=== PATIENT | male | born 1945 | race Caucasian/White ===

== ENCOUNTER 2019-03-13 16:27 | Emergency (ER) | payer MEDICARE, OTHER ==
[2019-03-13 16:41] VITALS: BP 164/92; PULSE 75; O2SAT 98
--- NOTE | 2019-03-13 16:41 | ERPHSYRPT ---
- History of Present Illness Time Seen by Provider: 03/13/19 16:33 Source: patient Exam Limitations: no limitations Patient Subjective Stated Complaint: this occurred just prior to arrival. Pain in left knee, this occurred when stepping off a curb there was a pop and immediate pain. He cannot bear weight on the left lower extremity. History of knee pain for some time but this is different than his past problems. Method of Injury: twisted Occurred: just prior to arrival Quality: sharpness Severity of Pain-Max: moderate Severity of Pain-Current: moderate Lower Extremities Pain: knee: left Modifying Factors: Improves With: nothing Associated Symptoms: unable to bear weight, snapping sensation, popping sensation - Review of Systems Constitutional: No Fever, No Chills Eyes: No Symptoms Ears, Nose, & Throat: No Symptoms Respiratory: No Cough, No Dyspnea Cardiac: No Chest Pain, No Edema, No Syncope Abdominal/Gastrointestinal: No Abdominal Pain, No Nausea, No Vomiting, No Diarrhea Genitourinary Symptoms: No Dysuria Musculoskeletal: Joint Pain, No Back Pain, No Neck Pain Skin: No Rash Neurological: No Dizziness, No Focal Weakness, No Sensory Changes Psychological: No Symptoms Endocrine: No Symptoms All Other Systems: Reviewed and Negative - Nursing Vital Signs Nursing Vital Signs: Initial Vital Signs Temperature 97.7 F 03/13/19 16:32 Pulse Rate 75 03/13/19 16:32 Respiratory Rate 18 03/13/19 16:32 Blood Pressure 164/92 03/13/19 16:32 O2 Sat by Pulse Oximetry 98 03/13/19 16:32 Pain Scale Pain Intensity 8 - Physical Exam General Appearance: alert Eyes, Ears, Nose, Throat Exam: moist mucous membranes Neck Exam: non-tender, supple Cardiovascular/Respiratory Exam: chest non-tender, normal breath sounds, regular rate/rhythm, no respiratory distress Gastrointestinal/Abdominal Exam: non-tender, guarding Back Exam: normal inspection, No vertebral tenderness Knees Exam: left knee: bone tenderness, joint effusion (none appreciated), pain , swelling DTR - Lower Extremities Exam: knee (R): 2+, knee (L): 2+ Neuro/Tendon Exam: normal sensation, normal motor functions, No tendon function deficit Mental Status Exam: alert, oriented x 3, cooperative Skin Exam: normal color, warm, dry - Course Nursing assessment & vital signs reviewed: Yes - Radiology Exams left knee X-ray Interpretation: Interpreted by me, Negative Ordered Tests: Active Orders 24 hr Category Date Time Status KNEE (3 VIEWS) Stat Exams 03/13/19 Ordered - Progress Discussed with DrPalmira: Other (ortho clinic at 8 AM) - Departure Departure Disposition: Home Clinical Impression: Internal derangement of knee Condition: Stable Critical Care Time: No Additional Instructions: ortho clinic at 8 AM tomorrow Plan of Treatment: immobilization, ccrutches Prescriptions: Hydrocodone/APAP 5-325 Tab^^^ [[place] 5-325 Tablet^^^] 1 tab PO Q6HPRN PRN #10 tablet MDD 6 PRN Reason: Pain
--- NOTE | 2019-03-13 17:02 | XRAY ---
Indication: Posterior knee pain. Comparison: None 3 views of the right knee demonstrates minimal medial joint space narrowing/spurring, tiny patella spurring, small tibial tubercle spurring, small fabella, and minimal vascular calcifications. No other bony, articular, or soft tissue abnormalities.
== END 2019-03-13 17:30 | disposition home or self-care (01) ==
LOC: ED 16:27
DX: M23.92 Unspecified internal derangement of left knee (principal); M25.562 Pain in left knee; X50.1XXA Overexertion from prolonged static or awkward postures, initial encounter; Y92.89 Other specified places as the place of occurrence of the external cause
CPT/HCPCS: 73562; 99284; L1830

== ENCOUNTER 2021-11-02 18:49 | Emergency (ER) | payer MEDICARE, OTHER ==
[2021-11-02 19:55] LABS: Basophil (Absolute #) 0.01 x10^3/uL (0-0.4); Eosinophil % 6.9 % (0.00-5.0); Eosinophil (Absolute #) 0.69 x10^3/uL (0-0.5); Hematocrit 36.3 % (42-50); Hemoglobin 11.8 g/dL (12.5-18.0); Lymphocyte (Absolute #) 2.06 x10^3/uL (1.0-4.6); Lymphocytes % 20.7 % (24.0-44.0); Mean Corpuscular Hemoglobin 26.3 pg (26-32); Mean Corpuscular Hgb Concent. 32.5 g/dL (32-36); Mean Platelet Volume 10.7 fL (7.5-11.0); Monocyte (Absolute #) 1.44 x10^3/uL (0.0-1.3); Monocytes % 14.5 % (0.0-12.0); Neutrophil % 57.4 % (36.0-66.0); Platelet Count 237 x10^3/uL (150-450); Red Blood Count 4.48 x10^6/uL (4.1-5.6); Red Cell Distribution Width 14.6 % (11.5-14.0); White Blood Count 9.9 x10^3/uL (4.0-10.5)
--- NOTE | 2021-11-02 20:13 | ERPHSYRPT ---
- History of Present Illness Time Seen by Provider: 11/02/21 19:20 Source: patient Exam Limitations: no limitations Patient Subjective Stated Complaint: low blood pressure and felt he was having Triage Nursing Assessment: pt went to CT clinic today in [place], and felt like his vision was fuzzy on the way home. took his b/p and it was low when they got home at 81/67 and 78/54. Pt's b/p is normal here at 115/65. Pt has been fatigued, diarrhea after eating. Pt has had a headache off and off a couple times the last week or so. Pt is pre-diabetic and does wear glasses. Pt has not seen his eye dr for over a year. Physician History: Patient is a 76-year-old male presents to our ED for evaluation of hypotension and transient visual loss. Patient has been experiencing the symptoms for approximately a week. [facility] [place] Patient states his visual loss is binocular and describes it as fuzziness. Symptoms are in association with fatigue. Patient also states he has been experiencing diarrhea post meals. Patient does wear corrective lenses in spite has been experiencing transient visual disturbances. Patient states he is "borderline diabetic". Patient has been experiencing intermittent headaches over the past couple weeks. Currently no active symptomology. Patient was not hypotensive during her triage examination. at bedside. When present symptoms are mild to moderate in intensity. No specific worsening improving factors. Patient denies history of the same. He voices no other complaints or concerns at this time. Timing/Duration: week(s) Severity: moderate Character of Deficits: other (Binocular fuzzy vision) Deficits: no difficulties Baseline/Normal Cognition: alert oriented x 3 Current Cognition: alert oriented x 3 Baseline Gait: walks w/o assistance Associated Symptoms: other (Hypotension) Allergies/Adverse Reactions: No Known Drug Allergies Allergy (Verified 11/02/21 19:17) Home Medications: Propranolol HCl 30 mg PO BID 03/13/19 [History] Empagliflozin [Jardiance] 25 mg PO DAILY 11/02/21 [History] Lisinopril/Hydrochlorothiazide [Lisinopril-Hctz 20-25 mg Tab] 1 tab PO DAILY 11/02/21 [History] Rosuvastatin Calcium 20 mg PO DAILY 11/02/21 [History] Hx Tetanus, Diphtheria Vaccination/Date Given: Yes Hx Influenza Vaccination/Date Given: Yes Hx Pneumococcal Vaccination/Date Given: Yes Immunizations Up to Date: Yes Travel Risk - International Travel Have you traveled outside of the country in past 3 weeks: No - Coronavirus Screening Are you exhibiting any of the following symptoms?: Yes Symptoms: Vomiting/Diarrhea, Headaches/Body Aches/Fatigue Close contact with a COVID-19 positive Pt in past 14-21 Days: No - Vaccine Status Have you recieved a Covid-19 vaccination: Yes Graphic Specialist: Moderna - Vaccination Dates Date of 2cond Vaccination (if applicable): 09/09/20 Comment: 2nd booster 11/02/21 - Review of Systems Constitutional: No Symptoms, No Fever, No Chills Eyes: No Symptoms Ears, Nose, & Throat: No Symptoms Respiratory: No Symptoms, No Cough, No Dyspnea Cardiac: No Symptoms, No Chest Pain, No Edema, No Syncope Abdominal/Gastrointestinal: No Symptoms, No Abdominal Pain, No Nausea, No Vomiting, No Diarrhea Genitourinary Symptoms: No Symptoms, No Dysuria Musculoskeletal: No Symptoms, No Back Pain, No Neck Pain Skin: No Symptoms, No Rash Neurological: No Symptoms, No Dizziness, No Focal Weakness, No Sensory Changes Psychological: No Symptoms Endocrine: No Symptoms Hematologic/Lymphatic: No Symptoms Immunological/Allergic: No Symptoms All Other Systems: Reviewed and Negative - Past Medical History Pertinent Past Medical History: Yes Neurological History: No Pertinent History ENT History: No Pertinent History Cardiac History: High Cholesterol, Hypertension Respiratory History: No Pertinent History Endocrine Medical History: No Pertinent History Musculoskeletal History: No Pertinent History GI Medical History: No Pertinent History History: No Pertinent History Psycho-Social History: No Pertinent History Male Reproductive Disorders: No Pertinent History - Past Surgical History Past Surgical History: Yes Neuro Surgical History: No Pertinent History Cardiac: No Pertinent History Respiratory: No Pertinent History Gastrointestinal: Other Genitourinary: No Pertinent History Musculoskeletal: No Pertinent History Male Surgical History: No Pertinent History Other Surgical History: colonoscopy. egd - Social History Smoking Status: Never smoker Exposure to second hand smoke: Yes Drug Use: none Patient Lives Alone: No - Nursing Vital Signs Nursing Vital Signs: Initial Vital Signs Temperature 97.4 F 11/02/21 19:00 Pulse Rate 79 11/02/21 19:00 Respiratory Rate 20 11/02/21 19:00 Blood Pressure 115/65 11/02/21 19:00 O2 Sat by Pulse Oximetry 95 11/02/21 19:00 Pain Scale Pain Intensity 0 - [place] Coma Scale Best Eye Response ([place]): (4) open spontaneously Best Verbal Response ([place]): (5) oriented Best Motor Response ([place]): (6) obeys commands [place] Total: 15 - Physical Exam General Appearance: no apparent distress, alert Eye Exam: bilateral eye: normal inspection, PERRL, EOMI Ears, Nose, Throat Exam: normal ENT inspection, TMs normal, pharynx normal, moist mucous membranes Neck Exam: normal inspection, non-tender, supple, full range of motion Respiratory: normal breath sounds, lungs clear, airway intact, No chest tenderness, No respiratory distress Cardiovascular: regular rate/rhythm, normal heart sounds, normal peripheral pulses, No edema Gastrointestinal: soft, normal bowel sounds, No tenderness, No distention Back Exam: normal inspection, normal range of motion, No CVA tenderness Extremity Exam: normal inspection, normal range of motion, pelvis stable, No pedal edema Peripheral Pulses: dorsalis-pedis (R): 2+, dorsalis-pedis (L): 2+ Mental Status: alert, oriented x 3, cooperative master rigger Exam: normal hearing, normal speech, PERRL, tongue midline Coordination/Gait: normal finger to nose, normal gait, normal cerebellar function Motor/Sensory: no motor deficit, no sensory deficit, no pronator drift Skin Exam: normal color, warm, dry, No rash SpO2 Interpretation: normal SpO2: 98 O2 Delivery: Room Air - Course Nursing assessment & vital signs reviewed: Yes EKG Interpreted by Me: RATE (76), Sinus Rhythm, NORMAL AXIS, NORMAL INTERVALS - CT Exams Head CT Interpretation: Tele-radiologist Report (Head CT no comps, nonacute senile brain with lacunar infarcts. Right basal ganglia and right caudate. Also right maxillary sinus disease) Ordered Tests: Active Orders 24 hr Category Date Time Status Melt House Centrifugal Operator STAT Care 11/02/21 19:24 Active EKG-ER Only STAT Care 11/02/21 19:23 Active IV Insertion STAT Care 11/02/21 19:36 Active Pulse Oximetry (ED) STAT Care 11/02/21 19:23 Active HEAD WITHOUT CONTRAST [CT] Stat Exams 11/02/21 20:19 Taken ABG [ARTERIAL BLOOD GASES] Stat Lab 11/02/21 22:22 Completed CBC W DIFF Stat Lab 11/02/21 19:45 Completed CMP Stat Lab 11/02/21 19:45 Completed CMP Stat Lab 11/03/21 01:45 Completed Lactic Acid Stat Lab 11/03/21 01:22 Completed TROPONIN Q3H Lab 11/02/21 19:45 Completed TROPONIN Q3H Lab 11/02/21 22:03 Completed TROPONIN Q3H Lab 11/03/21 01:45 Completed UA W/RFX CULTURE Stat Lab 11/02/21 21:59 Completed Medication Summary Generic Name Dose Route Start Last Admin Trade Name Freq PRN Reason Stop Dose Admin Lactated Ringer's 1,000 mls @ 100 mls/hr 11/03/21 03:00 11/03/21 03:02 Lactated Ringers IV 12/03/21 02:59 100 mls/hr .Q10H YU Administration Discontinued Medications Generic Name Dose Route Start Last Admin Trade Name Freq PRN Reason Stop Dose Admin Sodium Chloride 500 mls @ 500 mls/hr 11/02/21 22:17 11/02/21 23:25 Sodium Chloride 0.9% 500 Ml IV 11/02/21 23:16 Infused .Q1H ONE Infusion Sodium Chloride Confirm 11/02/21 22:24 Sodium Chloride 0.9% 500 Ml Administered 11/02/21 22:25 Dose 500 mls @ ud IV .STK-MED ONE Sodium Chloride 500 mls @ 500 mls/hr 11/03/21 00:39 11/03/21 01:52 Sodium Chloride 0.9% 500 Ml IV 11/03/21 01:38 Infused .Q1H ONE Infusion Sodium Chloride Confirm 11/03/21 00:41 Sodium Chloride 0.9% 500 Ml Administered 11/03/21 00:42 Dose 500 mls @ ud IV .STK-MED ONE Lab/Rad Data: Laboratory Result Diagrams 11/02/21 19:45 11/03/21 01:45 Laboratory Results 11/03/21 11/03/21 11/03/21 Range/Units 01:45 01:45 01:22 WBC (4.0-10.5) x10^3/uL RBC (4.1-5.6) x10^6/uL Hgb (12.5-18.0) g/dL Hct (42-50) % MCV (78-100) fL MCH (26-32) pg MCHC (32-36) g/dL RDW (11.5-14.0) % Plt Count (150-450) x10^3/uL MPV (7.5-11.0) fL Gran % (36.0-66.0) % Immature Gran % (Auto) (0.00-0.4) % Nucleat RBC Rel Count (0.00-0.1) % Eos # (Auto) (0-0.5) x10^3/uL Immature Gran # (Auto) (0.00-0.03) x10^3u/L Absolute Lymphs (auto) (1.0-4.6) x10^3/uL Absolute Monos (auto) (0.0-1.3) x10^3/uL Absolute Nucleated RBC (0.00-0.01) x10^3u/L Lymphocytes % (24.0-44.0) % Monocytes % (0.0-12.0) % Eosinophils % (0.00-5.0) % Basophils % (0.0-0.4) % Absolute Granulocytes (1.4-6.9) x10^3/uL Basophils # (0-0.4) x10^3/uL Puncture Site pCO2 (35-45) mmHg pO2 (75-100) mmHg Base Excess (-2.0-2.0) O2 Saturation (94-100) g/dF ABG pH (7.35-7.45) ABG HCO3 (22-28) ABG O2 Sat (Measured) (95-100) % Bandar Test A-a Gradient a/A Ratio Hemoglobin Carboxyhemoglobin (0.0-6.9) % THgb Methemoglobin (1.4-1.5) % Temperature C POC O2 Flow Rate % Sodium 135 L (137-145) mmol/L Potassium 3.6 (3.5-5.1) mmol/L Chloride 103 (98-107) mmol/L Carbon Dioxide 14 L* (22-30) mmol/L Anion Gap 22.8 H (5-15) MEQ/L BUN 88 H (9-20) mg/dL Creatinine 8.33 H (0.66-1.25) mg/dL Estimated GFR 6.7 ML/MIN Glucose 92 (74-106) mg/dL Lactic Acid 0.6 (0.4-2.0) Calcium 8.3 L (8.4-10.2) mg/dL Total Bilirubin 0.40 (0.2-1.3) mg/dL AST 13 L (17-59) U/L ALT 9 (0-50) U/L Alkaline Phosphatase 68 (38-126) U/L Troponin I < 0.012 (0.000-0.034) ng/mL Serum Total Protein 7.1 (6.3-8.2) g/dL Albumin 3.4 L (3.5-5.0) g/dL Urinalys Dipstick Clnc Urine Color (YELLOW) Urine Appearance (CLEAR) Urine pH (5-6) Ur Specific [place] (1.005-1.025) POC Urine Protein Conf (Negative) Urine Ketones (NEGATIVE) Urine Nitrite (NEGATIVE) Urine Bilirubin (NEGATIVE) Urine Urobilinogen (0-1) mg/dL Urine Leukocytes (NEGATIVE) Urine WBC (Auto) (0-5) /HPF Urine RBC (Auto) (0-2) /HPF U Hyaline Cast (Auto) (0-2) /LPF U Epithel Cells (Auto) (FEW) /HPF Urine Bacteria (Auto) (NEGATIVE) /HPF Urine RBC (0-5) Shubham/ul Urine Mucus (Auto) (NEGATIVE) /HPF Ur Culture Indicated? Urine Glucose (NEGATIVE) mg/dL Influenza Type A Ag (NEGATIVE) Influenza Type B Ag (NEGATIVE) RSV (PCR) (Negative) SARS-CoV-2 (PCR) (NEGATIVE) 11/02/21 11/02/21 11/02/21 Range/Units 22:22 22:03 21:59 WBC (4.0-10.5) x10^3/uL RBC (4.1-5.6) x10^6/uL Hgb (12.5-18.0) g/dL Hct (42-50) % MCV (78-100) fL MCH (26-32) pg MCHC (32-36) g/dL RDW (11.5-14.0) % Plt Count (150-450) x10^3/uL MPV (7.5-11.0) fL Gran % (36.0-66.0) % Immature Gran % (Auto) (0.00-0.4) % Nucleat RBC Rel Count (0.00-0.1) % Eos # (Auto) (0-0.5) x10^3/uL Immature Gran # (Auto) (0.00-0.03) x10^3u/L Absolute Lymphs (auto) (1.0-4.6) x10^3/uL Absolute Monos (auto) (0.0-1.3) x10^3/uL Absolute Nucleated RBC (0.00-0.01) x10^3u/L Lymphocytes % (24.0-44.0) % Monocytes % (0.0-12.0) % Eosinophils % (0.00-5.0) % Basophils % (0.0-0.4) % Absolute Granulocytes (1.4-6.9) x10^3/uL Basophils # (0-0.4) x10^3/uL Puncture Site R radial pCO2 27 L (35-45) mmHg pO2 88 (75-100) mmHg Base Excess -11.5 L (-2.0-2.0) O2 Saturation 96.0 (94-100) g/dF ABG pH 7.30 L (7.35-7.45) ABG HCO3 13.3 L* (22-28) ABG O2 Sat (Measured) 98.2 (95-100) % Bandar Test Yes A-a Gradient 28 a/A Ratio 0.76 Hemoglobin 11.8 Carboxyhemoglobin 1.3 (0.0-6.9) % THgb Methemoglobin 0.8 L (1.4-1.5) % Temperature 37.0 C POC O2 Flow Rate 21 % Sodium (137-145) mmol/L Potassium 3.6 (3.5-5.1) mmol/L Chloride (98-107) mmol/L Carbon Dioxide (22-30) mmol/L Anion Gap (5-15) MEQ/L BUN (9-20) mg/dL Creatinine (0.66-1.25) mg/dL Estimated GFR ML/MIN Glucose (74-106) mg/dL Lactic Acid (0.4-2.0) Calcium (8.4-10.2) mg/dL Total Bilirubin (0.2-1.3) mg/dL AST (17-59) U/L ALT (0-50) U/L Alkaline Phosphatase (38-126) U/L Troponin I < 0.012 (0.000-0.034) ng/mL Serum Total Protein (6.3-8.2) g/dL Albumin (3.5-5.0) g/dL Urinalys Dipstick Clnc MAIN LAB Urine Color YELLOW (YELLOW) Urine Appearance CLEAR (CLEAR) Urine pH 5.0 (5-6) Ur Specific [place] 1.025 (1.005-1.025) POC Urine Protein Conf 30 (Negative) Urine Ketones NEGATIVE (NEGATIVE) Urine Nitrite NEGATIVE (NEGATIVE) Urine Bilirubin SMALL (NEGATIVE) Urine Urobilinogen 0.2 (0-1) mg/dL Urine Leukocytes NEGATIVE (NEGATIVE) Urine WBC (Auto) 0-2 (0-5) /HPF Urine RBC (Auto) NONE (0-2) /HPF U Hyaline Cast (Auto) 11-25 (0-2) /LPF U Epithel Cells (Auto) NONE (FEW) /HPF Urine Bacteria (Auto) NONE (NEGATIVE) /HPF Urine RBC NEGATIVE (0-5) Shubham/ul Urine Mucus (Auto) SLIGHT (NEGATIVE) /HPF Ur Culture Indicated? NO Urine Glucose NEGATIVE (NEGATIVE) mg/dL Influenza Type A Ag (NEGATIVE) Influenza Type B Ag (NEGATIVE) RSV (PCR) (Negative) SARS-CoV-2 (PCR) (NEGATIVE) 11/02/21 11/02/21 11/02/21 Range/Units 19:45 19:45 19:45 WBC (4.0-10.5) x10^3/uL RBC (4.1-5.6) x10^6/uL Hgb (12.5-18.0) g/dL Hct (42-50) % MCV (78-100) fL MCH (26-32) pg MCHC (32-36) g/dL RDW (11.5-14.0) % Plt Count (150-450) x10^3/uL MPV (7.5-11.0) fL Gran % (36.0-66.0) % Immature Gran % (Auto) (0.00-0.4) % Nucleat RBC Rel Count (0.00-0.1) % Eos # (Auto) (0-0.5) x10^3/uL Immature Gran # (Auto) (0.00-0.03) x10^3u/L Absolute Lymphs (auto) (1.0-4.6) x10^3/uL Absolute Monos (auto) (0.0-1.3) x10^3/uL Absolute Nucleated RBC (0.00-0.01) x10^3u/L Lymphocytes % (24.0-44.0) % Monocytes % (0.0-12.0) % Eosinophils % (0.00-5.0) % Basophils % (0.0-0.4) % Absolute Granulocytes (1.4-6.9) x10^3/uL Basophils # (0-0.4) x10^3/uL Puncture Site pCO2 (35-45) mmHg pO2 (75-100) mmHg Base Excess (-2.0-2.0) O2 Saturation (94-100) g/dF ABG pH (7.35-7.45) ABG HCO3 (22-28) ABG O2 Sat (Measured) (95-100) % Bandar Test A-a Gradient a/A Ratio Hemoglobin Carboxyhemoglobin (0.0-6.9) % THgb Methemoglobin (1.4-1.5) % Temperature C POC O2 Flow Rate % Sodium 135 L (137-145) mmol/L Potassium 4.2 (3.5-5.1) mmol/L Chloride 100 (98-107) mmol/L Carbon Dioxide 12 L* (22-30) mmol/L Anion Gap 26.2 H (5-15) MEQ/L BUN 95 H (9-20) mg/dL Creatinine 9.43 H (0.66-1.25) mg/dL Estimated GFR 5.8 ML/MIN Glucose 83 (74-106) mg/dL Lactic Acid (0.4-2.0) Calcium 8.8 (8.4-10.2) mg/dL Total Bilirubin 0.50 (0.2-1.3) mg/dL AST 17 (17-59) U/L ALT 10 (0-50) U/L Alkaline Phosphatase 69 (38-126) U/L Troponin I < 0.012 (0.000-0.034) ng/mL Serum Total Protein 7.4 (6.3-8.2) g/dL Albumin 3.8 (3.5-5.0) g/dL Urinalys Dipstick Clnc Urine Color (YELLOW) Urine Appearance (CLEAR) Urine pH (5-6) Ur Specific [place] (1.005-1.025) POC Urine Protein Conf (Negative) Urine Ketones (NEGATIVE) Urine Nitrite (NEGATIVE) Urine Bilirubin (NEGATIVE) Urine Urobilinogen (0-1) mg/dL Urine Leukocytes (NEGATIVE) Urine WBC (Auto) (0-5) /HPF Urine RBC (Auto) (0-2) /HPF U Hyaline Cast (Auto) (0-2) /LPF U Epithel Cells (Auto) (FEW) /HPF Urine Bacteria (Auto) (NEGATIVE) /HPF Urine RBC (0-5) Shubham/ul Urine Mucus (Auto) (NEGATIVE) /HPF Ur Culture Indicated? Urine Glucose (NEGATIVE) mg/dL Influenza Type A Ag NEGATIVE (NEGATIVE) Influenza Type B Ag NEGATIVE (NEGATIVE) RSV (PCR) NEGATIVE (Negative) SARS-CoV-2 (PCR) NEGATIVE (NEGATIVE) 11/02/21 Range/Units 19:45 WBC 9.9 (4.0-10.5) x10^3/uL RBC 4.48 (4.1-5.6) x10^6/uL Hgb 11.8 L (12.5-18.0) g/dL Hct 36.3 L (42-50) % MCV 81.0 (78-100) fL MCH 26.3 (26-32) pg MCHC 32.5 (32-36) g/dL RDW 14.6 H (11.5-14.0) % Plt Count 237 (150-450) x10^3/uL MPV 10.7 (7.5-11.0) fL Gran % 57.4 (36.0-66.0) % Immature Gran % (Auto) 0.4 (0.00-0.4) % Nucleat RBC Rel Count 0.0 (0.00-0.1) % Eos # (Auto) 0.69 H (0-0.5) x10^3/uL Immature Gran # (Auto) 0.04 H (0.00-0.03) x10^3u/L Absolute Lymphs (auto) 2.06 (1.0-4.6) x10^3/uL Absolute Monos (auto) 1.44 H (0.0-1.3) x10^3/uL Absolute Nucleated RBC 0.00 (0.00-0.01) x10^3u/L Lymphocytes % 20.7 L (24.0-44.0) % Monocytes % 14.5 H (0.0-12.0) % Eosinophils % 6.9 H (0.00-5.0) % Basophils % 0.1 (0.0-0.4) % Absolute Granulocytes 5.70 (1.4-6.9) x10^3/uL Basophils # 0.01 (0-0.4) x10^3/uL Puncture Site pCO2 (35-45) mmHg pO2 (75-100) mmHg Base Excess (-2.0-2.0) O2 Saturation (94-100) g/dF ABG pH (7.35-7.45) ABG HCO3 (22-28) ABG O2 Sat (Measured) (95-100) % Bandar Test A-a Gradient a/A Ratio Hemoglobin Carboxyhemoglobin (0.0-6.9) % THgb Methemoglobin (1.4-1.5) % Temperature C POC O2 Flow Rate % Sodium (137-145) mmol/L Potassium (3.5-5.1) mmol/L Chloride (98-107) mmol/L Carbon Dioxide (22-30) mmol/L Anion Gap (5-15) MEQ/L BUN (9-20) mg/dL Creatinine (0.66-1.25) mg/dL Estimated GFR ML/MIN Glucose (74-106) mg/dL Lactic Acid (0.4-2.0) Calcium (8.4-10.2) mg/dL Total Bilirubin (0.2-1.3) mg/dL AST (17-59) U/L ALT (0-50) U/L Alkaline Phosphatase (38-126) U/L Troponin I (0.000-0.034) ng/mL Serum Total Protein (6.3-8.2) g/dL Albumin (3.5-5.0) g/dL Urinalys Dipstick Clnc Urine Color (YELLOW) Urine Appearance (CLEAR) Urine pH (5-6) Ur Specific [place] (1.005-1.025) POC Urine Protein Conf (Negative) Urine Ketones (NEGATIVE) Urine Nitrite (NEGATIVE) Urine Bilirubin (NEGATIVE) Urine Urobilinogen (0-1) mg/dL Urine Leukocytes (NEGATIVE) Urine WBC (Auto) (0-5) /HPF Urine RBC (Auto) (0-2) /HPF U Hyaline Cast (Auto) (0-2) /LPF U Epithel Cells (Auto) (FEW) /HPF Urine Bacteria (Auto) (NEGATIVE) /HPF Urine RBC (0-5) Shubham/ul Urine Mucus (Auto) (NEGATIVE) /HPF Ur Culture Indicated? Urine Glucose (NEGATIVE) mg/dL Influenza Type A Ag (NEGATIVE) Influenza Type B Ag (NEGATIVE) RSV (PCR) (Negative) SARS-CoV-2 (PCR) (NEGATIVE) - Progress Progress: improved Progress Note: Case discussed with Dr. Narayanan of [facility]. Dr. Narayanan accepts transfer however there are no beds available. Dr. Alba is requesting that we add on a lactic acid. 11/03/21 01:[address] Reji Caal of [facility] who accepts transfer. 11/03/21 01:[address] Villar at [facility] who initially declined transfer due to acidosis requiring ICU. However after some IV fluids and repeat chemistry patient's acidosis is improving as is his renal function. It does not believe that patient requires ICU. Will not transfer patient to [facility] for further evaluation and treatment. Plan of care discussed with patient. He agrees to transfer to [facility] for further evaluation and treatment. Portions of this note were created with voice recognition technology. There may be grammatical, spelling, punctuation or sound alike errors 11/03/21 05:01 Of note we attempted to transfer patient to the CT in [place] and [place] however transfer was declined due to bed availability. 11/03/21 05:09 Counseled pt/family regarding: lab results, diagnosis, rad results - Departure Departure Disposition: Transfer Clinical Impression: Acute renal injury, Metabolic acidosis, Binocular visual disturbance, Labile blood pressure, Right maxillary sinus disease Condition: Stable Critical Care Time: No Referrals: HOSPITAL,'S [Primary Care Provider] - Follow up/PCP as directed
[2021-11-02 20:27] LABS: ALBUMIN 3.8 g/dL (3.5-5.0); ANION GAP 26.2 MEQ/L (5-15); BILIRUBIN,TOTAL 0.5 mg/dL (0.2-1.3); Calcium 8.8 mg/dL (8.4-10.2); Potassium 4.2 mmol/L (3.5-5.1); Total Protein 7.4 g/dL (6.3-8.2)
[2021-11-02 20:34] LABS: INFLUENZA A NEGATIVE (NEGATIVE); INFLUENZA B NEGATIVE (NEGATIVE); RESPIRATORY SYNCTIAL VIRUS NEGATIVE (Negative); SARS-CoV-2 Xpert Express NEGATIVE (NEGATIVE)
[2021-11-02 21:01] LABS: Creatinine 1 9.43 mg/dL (0.66-1.25); EST GLOMERULAR FILTRATION RATE 5.8 ML/MIN
[2021-11-02 22:06] LABS: Appearance CLEAR (CLEAR); Bilirubin SMALL (NEGATIVE); Glucose NEGATIVE (NEGATIVE)
[2021-11-02 22:07] LABS: Dipstick done @ ? MAIN LAB; Ketones NEGATIVE (NEGATIVE); Nitrite NEGATIVE (NEGATIVE); Protein,Urine Dip 30 (Negative); RBC NEGATIVE Ery/ul (0-5); Specific Gravity 1.025 (1.005-1.025); Urobilinogen 0.2 mg/dL (0-1)
[2021-11-02 22:11] LABS: Mucus SLIGHT /HPF (NEGATIVE); WBC 0-2 /HPF (0-5)
[2021-11-02 22:16] LABS: Urine Cultured Indicated? NO
[2021-11-02] MEDS ORDERED: Sodium Chloride 0.9% 500 ML 500 ML IV ONE ×2 (22:17→22:24)
[2021-11-02 22:51] LABS: A-aADO2 28; ABG HEMOGLOBIN 11.8; ABG POTASSIUM 3.6 (3.5-5.1); ARTERIAL BLD GAS O2 SATURATION 98.2 % (95-100); ARTERIAL BLOOD GAS BASE EXCESS -11.5 (-2.0-2.0); ARTERIAL BLOOD GAS FIO2 21 %; ARTERIAL BLOOD GAS PCO2 27 mmHg (35-45); ARTERIAL BLOOD GAS PO2 88 mmHg (75-100); CARBOXYHEMOGLOBIN 1.3 % THgb (0.0-6.9); HCO3- 13.3 (22-28); Methhemoglobin 0.8 % (1.4-1.5)
[2021-11-02 22:52] LABS: ALLEN TEST OK? Yes
[2021-11-03] MEDS ORDERED: Sodium Chloride 0.9% 500 ML 500 ML IV ONE ×2 (00:39→00:41)
[2021-11-03 02:03] LABS: ALBUMIN 3.4 g/dL (3.5-5.0); ANION GAP 22.8 MEQ/L (5-15); BILIRUBIN,TOTAL 0.4 mg/dL (0.2-1.3); Calcium 8.3 mg/dL (8.4-10.2); Creatinine 1 8.33 mg/dL (0.66-1.25); EST GLOMERULAR FILTRATION RATE 6.7 ML/MIN; Potassium 3.6 mmol/L (3.5-5.1); Total Protein 7.1 g/dL (6.3-8.2)
[2021-11-03] MEDS ORDERED: Lactated Ringers 1,000 ML IV SCH (03:00)
[2021-11-03] MEDS ORDERED: Lactated Ringers 1,000 ML IV ONE (03:01)
[2021-11-03 05:03] VITALS: BP 89/59; PULSE 90; O2SAT 98
--- NOTE | 2021-11-03 08:56 | XRAY ---
Indication: Decreased blood pressure. "Fuzzy vision." Mass. Multiple contiguous axial images obtained through the head without contrast. Comparison: None Age-appropriate global atrophy and moderate periventricular degenerative micro-ischemia bilaterally. Tiny remote lacunar infarcts right basal ganglia, right caudate head, and bilateral black radiata. No acute intracranial hemorrhage, abnormal extra-axial fluid collection, or mass effect. Fourth ventricle is midline without hydrocephalus. Bony calvarium intact. Moderate mucosal thickening right axilla sinus with fluid leveling. Remaining paranasal sinuses and mastoid air cells are clear. Impression: 1. Nonacute senile brain with multifocal remote lacunar infarcts. 2. Incidental right maxillary sinus disease.
== END 2021-11-03 05:31 | disposition short-term general hospital (02) ==
LOC: ED 18:49
DX: N17.9 Acute kidney failure, unspecified (principal); E87.2 Acidosis; H53.30 Unspecified disorder of binocular vision; R09.89 Other specified symptoms and signs involving the circulatory and respiratory systems; J32.0 Chronic maxillary sinusitis; R53.1 Weakness; R19.7 Diarrhea, unspecified; R51.9 Headache, unspecified; E78.5 Hyperlipidemia, unspecified; I10 Essential (primary) hypertension; Z79.899 Other long term (current) drug therapy
CPT/HCPCS: 0241U; 36000; 36415; 36600; 70450; 80053; 81015; 82375; 82803; 83605; 84484; 85025; 93005; 93041; 94760; 96360; 96361; 99285

== ENCOUNTER 2021-12-15 14:20 | Emergency (ER) | payer OTHER ==
--- NOTE | 2021-12-15 14:45 | ERPHSYRPT ---
- History of Present Illness Time Seen by Provider: 12/15/21 14:41 Source: patient Exam Limitations: no limitations Patient Subjective Stated Complaint: General-Needing catheter bag changed Triage Nursing Assessment: Patient ambulated back to ED and transferred self to bed. Patient A+O X 3. Patient's skin pink, warm and dry. Patient has sullivan catheter bag that is leaking. Patient requesting to be seen to have leg bag changed. Patient denies pain or discomfort. Physician History: 76-year-old male with history of hypertension, hyperlipidemia, diabetes mellitus, difficulty urination with indwelling catheter for almost a month presented to the ER for replacement of leg bag as it is leaking. Denies any abdominal pain, hematuria, retention etc. No fever or chills reported. Allergies/Adverse Reactions: No Known Drug Allergies Allergy (Verified 12/15/21 14:32) Home Medications: Propranolol HCl 30 mg PO BID 03/13/19 [History] Empagliflozin [Jardiance] 25 mg PO DAILY 11/02/21 [History] Lisinopril/Hydrochlorothiazide [Lisinopril-Hctz 20-25 mg Tab] 1 tab PO DAILY 11/02/21 [History] Rosuvastatin Calcium 20 mg PO DAILY 11/02/21 [History] Hx Tetanus, Diphtheria Vaccination/Date Given: Yes Hx Influenza Vaccination/Date Given: Yes Hx Pneumococcal Vaccination/Date Given: Yes Immunizations Up to Date: Yes Travel Risk - International Travel Have you traveled outside of the country in past 3 weeks: No - Coronavirus Screening Are you exhibiting any of the following symptoms?: No Close contact with a COVID-19 positive Pt in past 14-21 Days: No - Vaccine Status Have you recieved a Covid-19 vaccination: Yes 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: Moderna - Vaccination Dates Date of 2cond Vaccination (if applicable): 09/09/20 Comment: 2nd booster 11/02/21 - Review of Systems Constitutional: No Symptoms Ears, Nose, & Throat: No Symptoms Respiratory: No Symptoms Cardiac: No Symptoms Abdominal/Gastrointestinal: No Symptoms Skin: No Symptoms Neurological: No Symptoms Hematologic/Lymphatic: No Symptoms Immunological/Allergic: No Symptoms - Past Medical History Pertinent Past Medical History: Yes Neurological History: No Pertinent History ENT History: No Pertinent History Cardiac History: High Cholesterol, Hypertension Respiratory History: No Pertinent History Endocrine Medical History: No Pertinent History Musculoskeletal History: No Pertinent History GI Medical History: No Pertinent History History: No Pertinent History Psycho-Social History: No Pertinent History Male Reproductive Disorders: No Pertinent History - Past Surgical History Past Surgical History: Yes Neuro Surgical History: No Pertinent History Cardiac: No Pertinent History Respiratory: No Pertinent History Gastrointestinal: Other Genitourinary: No Pertinent History Musculoskeletal: No Pertinent History Male Surgical History: No Pertinent History Other Surgical History: colonoscopy. egd - Social History Smoking Status: Never smoker Exposure to second hand smoke: Yes Drug Use: none Patient Lives Alone: No - Nursing Vital Signs Nursing Vital Signs: Initial Vital Signs Temperature 97.2 F 12/15/21 14:34 Pulse Rate 72 12/15/21 14:34 Respiratory Rate 18 12/15/21 14:34 Blood Pressure 157/96 12/15/21 14:34 O2 Sat by Pulse Oximetry 98 12/15/21 14:34 Pain Scale Pain Intensity 0 - Physical Exam General Appearance: no apparent distress, alert Eye Exam: PERRL/EOMI Ears, Nose, Throat Exam: normal ENT inspection Neck Exam: normal inspection Respiratory Exam: normal breath sounds, lungs clear Cardiovascular Exam: regular rate/rhythm, normal heart sounds Gastrointestinal/Abdomen Exam: soft, normal bowel sounds, No tenderness Male Genitalia Exam: other (Indwelling catheter well in place) Back Exam: normal inspection Extremity Exam: normal inspection Neurologic Exam: alert, oriented x 3, cooperative Skin Exam: normal color SpO2 Interpretation: normal SpO2: 98 O2 Delivery: Room Air - Progress Progress: improved Progress Note: 12/15/21 14:44 Patient does have a leg bag which needed to be replaced and is replaced by RN with no leakage. Patient does have appointment with nephrology on next Sunday. Counseled pt/family regarding: diagnosis, need for follow-up - Departure Departure Disposition: Home Clinical Impression: Sullivan catheter problem Condition: Stable Critical Care Time: No Referrals: [facility]OS[facility],'[facility] [Primary Care Provider] - Follow Up with PCP/3 days Additional Instructions: Keep appointment with nephrology and primary care for reevaluation. Return to ER if having urinary retention or inadequate urine output/suprapubic distention pain etc.
[2021-12-15 15:37] VITALS: BP 150/90; PULSE 96; O2SAT 97
== END 2021-12-15 15:37 | disposition home or self-care (01) ==
LOC: ED 14:20
DX: T83.031A Leakage of indwelling urethral catheter, initial encounter (principal); I10 Essential (primary) hypertension; E11.9 Type 2 diabetes mellitus without complications; Z79.899 Other long term (current) drug therapy
CPT/HCPCS: 99281

== ENCOUNTER 2022-11-14 15:21 | Observation (INO) | payer OTHER, MEDICARE ==
[2022-11-14] MEDS ORDERED: Sodium Chloride 0.9% 1000 ML 1,000 ML IV STA (15:55)
[2022-11-14] MEDS ORDERED: Sodium Chloride 0.9% 1000 ML 1,000 ML ONE (15:59)
[2022-11-14 16:00] LABS: Absolute Neutrophil Ct (ANC) 9.75 x10^3/uL (1.4-6.9); BASOPHIL % 0.1 % (0.0-0.4); Basophil (Absolute #) 0.02 x10^3/uL (0-0.4); Eosinophil % 1.5 % (0.00-5.0); Hematocrit 31.8 % (42-50); Hemoglobin 9.9 g/dL (12.5-18.0); IMMATURE GRAN # 0.08 x10^3u/L (0.00-0.03); IMMATURE GRAN % 0.6 % (0.00-0.4); Lymphocyte (Absolute #) 1.99 x10^3/uL (1.0-4.6); Lymphocytes % 14.9 % (24.0-44.0); Mean Cell Volume 91.6 fL (78-100); Mean Corpuscular Hemoglobin 28.5 pg (26-32); Mean Corpuscular Hgb Concent. 31.1 g/dL (32-36); Mean Platelet Volume 9.6 fL (7.5-11.0); Monocyte (Absolute #) 1.31 x10^3/uL (0.0-1.3); Monocytes % 9.8 % (0.0-12.0); Neutrophil % 73.1 % (36.0-66.0); Platelet Count 332 x10^3/uL (150-450); Red Blood Count 3.47 x10^6/uL (4.1-5.6); Red Cell Distribution Width 13.5 % (11.5-14.0); White Blood Count 13.4 x10^3/uL (4.0-10.5)
--- NOTE | 2022-11-14 16:05 | ERPHSYRPT ---
- History of Present Illness Time Seen by Provider: 11/14/22 15:23 Source: patient, family Exam Limitations: no limitations Patient Subjective Stated Complaint: pt feeling good for about 3 weeks now, was seen by pr and had blood test done. he states he as no energy,fuusy vision. not wanting to eat Triage Nursing Assessment: pt alert walked in.resp easy. skin warm/dry/pale. abd soft, no edema noted, Physician History: 77-year-old male with history of hypertension, hyperlipidemia, GERD presented in the ER with chief complaint of generalized weakness fatigue and tiredness progressively worsening for last 3 weeks. Patient reports no energy to do his routine activities and feels worn out even resting. Patient also reports feeling lightheaded with standing and blurry vision with no focal numbness tingling or weakness. Does have dark stool and remote history of GI bleed. Denies any chest pain palpitations or shortness of breath at resting but gets worn out, out of breath with activity lately. No fever or chills reported. Patient reports he does not have appetite and has been losing weight and unable to figure out the reason. Patient was seen [facility] few weeks ago and labs were done but does not know the results. Timing/Duration: week(s) (2), gradual onset, worse Severity: moderate Associated Symptoms: nausea, loss of appetite, malaise, weakness, No shortness of breath, No heartburn, No diaphoresis, No cough, No chills, No chest pain, No fever, No syncope Allergies/Adverse Reactions: No Known Drug Allergies Allergy (Verified 11/14/22 15:38) Home Medications: Propranolol HCl 30 mg PO BID 03/13/19 [History] Empagliflozin [Jardiance] 25 mg PO DAILY 11/02/21 [History] Lisinopril/Hydrochlorothiazide [Lisinopril-Hctz 20-25 mg Tab] 1 tab PO DAILY 11/02/21 [History] Rosuvastatin Calcium 20 mg PO DAILY 11/02/21 [History] Hx Tetanus, Diphtheria Vaccination/Date Given: Yes Hx Influenza Vaccination/Date Given: Yes Hx Pneumococcal Vaccination/Date Given: Yes Immunizations Up to Date: Yes Travel Risk - International Travel Have you traveled outside of the country in past 3 weeks: No - Coronavirus Screening Are you exhibiting any of the following symptoms?: No - Vaccine Status Have you recieved a Covid-19 vaccination: Yes 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 - Vaccination Dates Date of 2cond Vaccination (if applicable): 09/09/20 - Review of Systems Constitutional: Fatigue, Weakness Eyes: No Symptoms Ears, Nose, & Throat: No Symptoms Respiratory: No Symptoms Cardiac: No Symptoms Abdominal/Gastrointestinal: Diarrhea, Melena Genitourinary Symptoms: No Symptoms Musculoskeletal: Arthralgias Psychological: No Symptoms Endocrine: No Symptoms Hematologic/Lymphatic: No Symptoms Immunological/Allergic: No Symptoms - Past Medical History Pertinent Past Medical History: Yes Neurological History: No Pertinent History ENT History: No Pertinent History Cardiac History: High Cholesterol, Hypertension Respiratory History: No Pertinent History Endocrine Medical History: Other Musculoskeletal History: No Pertinent History GI Medical History: No Pertinent History, Ulcer History: No Pertinent History Psycho-Social History: No Pertinent History Male Reproductive Disorders: No Pertinent History Other Medical History: prediabetic - Past Surgical History Past Surgical History: Yes Neuro Surgical History: No Pertinent History Cardiac: No Pertinent History Respiratory: No Pertinent History Gastrointestinal: Other Genitourinary: No Pertinent History Musculoskeletal: No Pertinent History Male Surgical History: No Pertinent History Other Surgical History: colonoscopy. egd - Social History Smoking Status: Former smoker Exposure to second hand smoke: Yes Drug Use: none Patient Lives Alone: No - Nursing Vital Signs Nursing Vital Signs: Initial Vital Signs Temperature 97.0 F 11/14/22 15:42 Pulse Rate 78 11/14/22 15:42 Respiratory Rate 22 11/14/22 15:42 Blood Pressure 86/62 11/14/22 15:42 O2 Sat by Pulse Oximetry 96 11/14/22 15:42 Pain Scale Pain Intensity 0 - Physical Exam General Appearance: no apparent distress, alert Eye Exam: PERRL/EOMI, other (Pale conjunctive) Ears, Nose, Throat Exam: normal ENT inspection, TMs normal, pharynx normal, tonia st mucous membranes Respiratory Exam: normal breath sounds, lungs clear Cardiovascular Exam: regular rate/rhythm, normal heart sounds Gastrointestinal/Abdomen Exam: soft, normal bowel sounds, No tenderness Extremity Exam: normal inspection, normal range of motion Neurologic Exam: alert, oriented x 3, cooperative, skip miner II-XII nml as tested, normal mood/affect, nml cerebellar function, sensation nml, No motor deficits Skin Exam: normal color SpO2 Interpretation: normal SpO2: 96 O2 Delivery: Room Air - Course EKG Interpreted by Me: RATE (81), Sinus Rhythm, NORMAL AXIS, NORMAL INTERVALS, NORMAL QRS Ordered Tests: Medication Summary Discontinued Medications Generic Name Dose Route Start Last Admin Trade Name Freq PRN Reason Stop Dose Admin Acetaminophen 650 mg 11/14/22 22:46 11/15/22 23:39 Acetaminophen 325 Mg Tablet PO 12/14/22 22:45 650 mg Q4H PRN PRN Administration PAIN AND/OR FEVER Albuterol/Ipratropium 3 ml 11/14/22 22:46 Ipratropium/Albuterol Sulfate 3 Ml Ampul.Neb IH 12/14/22 22:45 Q4HPRN PRN SHORTNESS OF BREATH/WHEEZING Famotidine 20 mg 11/14/22 22:46 11/16/22 09:19 Famotidine 20 Mg/1 Vial IV 12/14/22 22:45 20 mg Q12HT YU Administration Hydralazine HCl 10 mg 11/15/22 00:24 Hydralazine Hcl 20 Mg/Ml Vial IV 12/15/22 00:23 Q4H PRN PRN HYPERTENSION Sodium Chloride 1,000 mls @ 999 mls/hr 11/14/22 15:55 11/14/22 18:41 Sodium Chloride 0.9% 1000 Ml IV 11/14/22 16:55 Infused .Q1H1M STA Infusion Sodium Chloride Confirm 11/14/22 15:59 Sodium Chloride 0.9% 1000 Ml Administered 11/14/22 16:00 Dose 1,000 mls @ ud .ROUTE .STK-MED ONE Sodium Chloride 500 mls @ 500 mls/hr 11/14/22 17:14 11/14/22 18:42 Sodium Chloride 0.9% 500 Ml IV 11/14/22 18:13 Infused .Q1H ONE Infusion Ceftriaxone Sodium/Dextrose 1 g in 50 mls @ 100 mls/hr 11/14/22 21:10 11/14/22 21:37 Rocephin 1 Gm-D5w 50 Ml Bag IV 11/14/22 21:39 100 ml/hr STAT STA 100 mls/hr Administration Ceftriaxone Sodium/Dextrose Confirm 11/14/22 21:36 Rocephin 1 Gm-D5w 50 Ml Bag Administered 11/14/22 21:37 Dose 1 g in 50 mls @ ud IV .STK-MED ONE Sodium Chloride 1,000 mls @ 100 mls/hr 11/14/22 22:46 11/15/22 21:44 Sodium Chloride 0.9% 1000 Ml IV 12/14/22 22:45 100 mls/hr .Q10H YU Administration Ceftriaxone Sodium/Dextrose 1 g in 50 mls @ 100 mls/hr 11/15/22 22:00 11/15/22 21:44 Rocephin 1 Gm-D5w 50 Ml Bag IV 11/18/22 21:59 100 mls/hr Q24H22 YU Administration Insulin Human Lispro 0 unit 11/14/22 22:46 Insulin Lispro 1 Unit SQ 12/14/22 22:45 UD PRN HYPERGLYCEMIA Lab/Rad Data: Laboratory Result Diagrams 11/14/22 15:55 11/14/22 15:51 Laboratory Results 11/14/22 11/14/22 11/14/22 Range/Units 20:00 19:09 18:21 WBC (4.0-10.5) x10^3/uL RBC (4.1-5.6) x10^6/uL Hgb (12.5-18.0) g/dL Hct (42-50) % MCV (78-100) fL MCH (26-32) pg MCHC (32-36) g/dL RDW (11.5-14.0) % Plt Count (150-450) x10^3/uL MPV (7.5-11.0) fL Gran % (36.0-66.0) % Immature Gran % (Auto) (0.00-0.4) % Nucleat RBC Rel Count (0.00-0.1) % Eos # (Auto) (0-0.5) x10^3/uL Immature Gran # (Auto) (0.00-0.03) x10^3u/L Absolute Lymphs (auto) (1.0-4.6) x10^3/uL Absolute Monos (auto) (0.0-1.3) x10^3/uL Absolute Nucleated RBC (0.00-0.01) x10^3u/L Lymphocytes % (24.0-44.0) % Monocytes % (0.0-12.0) % Eosinophils % (0.00-5.0) % Basophils % (0.0-0.4) % Absolute Granulocytes (1.4-6.9) x10^3/uL Basophils # (0-0.4) x10^3/uL Sodium (137-145) mmol/L Potassium (3.5-5.1) mmol/L Chloride (98-107) mmol/L Carbon Dioxide (22-30) mmol/L Anion Gap (5-15) MEQ/L BUN (9-20) mg/dL Creatinine (0.66-1.25) mg/dL Estimated GFR ML/MIN Glucose (74-106) mg/dL Lactic Acid 0.9 (0.4-2.0) Calcium (8.4-10.2) mg/dL Magnesium (1.6-2.3) mg/dL Total Bilirubin (0.2-1.3) mg/dL AST (17-59) U/L ALT (0-50) U/L Alkaline Phosphatase (38-126) U/L Troponin I < 0.012 (0.000-0.034) ng/mL NT-Pro-B Natriuret Pep (<300) pg/mL Serum Total Protein (6.3-8.2) g/dL Albumin (3.5-5.0) g/dL Lipase (23-300) U/L Procalcitonin (0.030-0.080) ng/mL Urine Color Yellow (Yellow) Urine Appearance Cloudy A (Clear) Urine pH 5.0 (4.6-8.0) Ur Specific [place] 1.025 (1.005-1.030) Urine Protein 30 (Negative) Urine Glucose (UA) >=1000 A (Negative) mg/dL Urine Ketones Trace A (Negative) Urine Blood Trace (Negative) Urine Nitrite Positive A (Negative) Urine Bilirubin Negative (Negative) Urine Urobilinogen 1.0 A (0.2) mg/dL Ur Leukocyte Esterase Moderate A (Negative) U Hyaline Cast (Auto) 11-20 (0-2) /LPF Urine Microscopic RBC 0-2 (0-5) /HPF Urine Microscopic WBC >100 A (0-5) /HPF Ur Epithelial Cells None Seen (None Seen) /HPF Urine Bacteria Moderate A (None Seen) /HPF Urine Culture Reflexed YES (NO) 11/14/22 11/14/22 11/14/22 Range/Units 16:15 15:55 15:51 WBC 13.4 H (4.0-10.5) x10^3/uL RBC 3.47 L (4.1-5.6) x10^6/uL Hgb 9.9 L (12.5-18.0) g/dL Hct 31.8 L (42-50) % MCV 91.6 (78-100) fL MCH 28.5 (26-32) pg MCHC 31.1 L (32-36) g/dL RDW 13.5 (11.5-14.0) % Plt Count 332 (150-450) x10^3/uL MPV 9.6 (7.5-11.0) fL Gran % 73.1 H (36.0-66.0) % Immature Gran % (Auto) 0.6 H (0.00-0.4) % Nucleat RBC Rel Count 0.0 (0.00-0.1) % Eos # (Auto) 0.20 (0-0.5) x10^3/uL Immature Gran # (Auto) 0.08 H (0.00-0.03) x10^3u/L Absolute Lymphs (auto) 1.99 (1.0-4.6) x10^3/uL Absolute Monos (auto) 1.31 H (0.0-1.3) x10^3/uL Absolute Nucleated RBC 0.00 (0.00-0.01) x10^3u/L Lymphocytes % 14.9 L (24.0-44.0) % Monocytes % 9.8 (0.0-12.0) % Eosinophils % 1.5 (0.00-5.0) % Basophils % 0.1 (0.0-0.4) % Absolute Granulocytes 9.75 H (1.4-6.9) x10^3/uL Basophils # 0.02 (0-0.4) x10^3/uL Sodium (137-145) mmol/L Potassium (3.5-5.1) mmol/L Chloride (98-107) mmol/L Carbon Dioxide (22-30) mmol/L Anion Gap (5-15) MEQ/L BUN (9-20) mg/dL Creatinine (0.66-1.25) mg/dL Estimated GFR ML/MIN Glucose (74-106) mg/dL Lactic Acid 2.0 (0.4-2.0) Calcium (8.4-10.2) mg/dL Magnesium (1.6-2.3) mg/dL Total Bilirubin (0.2-1.3) mg/dL AST (17-59) U/L ALT (0-50) U/L Alkaline Phosphatase (38-126) U/L Troponin I (0.000-0.034) ng/mL NT-Pro-B Natriuret Pep (<300) pg/mL Serum Total Protein (6.3-8.2) g/dL Albumin (3.5-5.0) g/dL Lipase (23-300) U/L Procalcitonin 0.188 H (0.030-0.080) ng/mL Urine Color (Yellow) Urine Appearance (Clear) Urine pH (4.6-8.0) Ur Specific [place] (1.005-1.030) Urine Protein (Negative) Urine Glucose (UA) (Negative) mg/dL Urine Ketones (Negative) Urine Blood (Negative) Urine Nitrite (Negative) Urine Bilirubin (Negative) Urine Urobilinogen (0.2) mg/dL Ur Leukocyte Esterase (Negative) U Hyaline Cast (Auto) (0-2) /LPF Urine Microscopic RBC (0-5) /HPF Urine Microscopic WBC (0-5) /HPF Ur Epithelial Cells (None Seen) /HPF Urine Bacteria (None Seen) /HPF Urine Culture Reflexed (NO) 11/14/22 Range/Units 15:51 WBC (4.0-10.5) x10^3/uL RBC (4.1-5.6) x10^6/uL Hgb (12.5-18.0) g/dL Hct (42-50) % MCV (78-100) fL MCH (26-32) pg MCHC (32-36) g/dL RDW (11.5-14.0) % Plt Count (150-450) x10^3/uL MPV (7.5-11.0) fL Gran % (36.0-66.0) % Immature Gran % (Auto) (0.00-0.4) % Nucleat RBC Rel Count (0.00-0.1) % Eos # (Auto) (0-0.5) x10^3/uL Immature Gran # (Auto) (0.00-0.03) x10^3u/L Absolute Lymphs (auto) (1.0-4.6) x10^3/uL Absolute Monos (auto) (0.0-1.3) x10^3/uL Absolute Nucleated RBC (0.00-0.01) x10^3u/L Lymphocytes % (24.0-44.0) % Monocytes % (0.0-12.0) % Eosinophils % (0.00-5.0) % Basophils % (0.0-0.4) % Absolute Granulocytes (1.4-6.9) x10^3/uL Basophils # (0-0.4) x10^3/uL Sodium 137 (137-145) mmol/L Potassium 3.9 (3.5-5.1) mmol/L Chloride 95 L (98-107) mmol/L Carbon Dioxide 27 (22-30) mmol/L Anion Gap 18.2 H (5-15) MEQ/L BUN 63 H (9-20) mg/dL Creatinine 2.71 H (0.66-1.25) mg/dL Estimated GFR 24.5 ML/MIN Glucose 126 H (74-106) mg/dL Lactic Acid (0.4-2.0) Calcium 9.0 (8.4-10.2) mg/dL Magnesium 2.3 (1.6-2.3) mg/dL Total Bilirubin 0.50 (0.2-1.3) mg/dL AST 34 (17-59) U/L ALT 35 (0-50) U/L Alkaline Phosphatase 74 (38-126) U/L Troponin I < 0.012 (0.000-0.034) ng/mL NT-Pro-B Natriuret Pep 79.1 (<300) pg/mL Serum Total Protein 8.1 (6.3-8.2) g/dL Albumin 3.7 (3.5-5.0) g/dL Lipase 306 H (23-300) U/L Procalcitonin (0.030-0.080) ng/mL Urine Color (Yellow) Urine Appearance (Clear) Urine pH (4.6-8.0) Ur Specific [place] (1.005-1.030) Urine Protein (Negative) Urine Glucose (UA) (Negative) mg/dL Urine Ketones (Negative) Urine Blood (Negative) Urine Nitrite (Negative) Urine Bilirubin (Negative) Urine Urobilinogen (0.2) mg/dL Ur Leukocyte Esterase (Negative) U Hyaline Cast (Auto) (0-2) /LPF Urine Microscopic RBC (0-5) /HPF Urine Microscopic WBC (0-5) /HPF Ur Epithelial Cells (None Seen) /HPF Urine Bacteria (None Seen) /HPF Urine Culture Reflexed (NO) - Progress Progress: improved Progress Note: 11/14/22 16:05 77-year-old male with history of hypertension, hyperlipidemia, GERD presented in the ER with chief complaint of generalized weakness fatigue and tiredness progressively worsening for last 3 weeks. Patient reports no energy to do his routine activities and feels worn out even resting. Patient also reports feeling lightheaded with standing and blurry vision with no focal numbness tingling or weakness. Does have dark stool and remote history of GI bleed. Denies any chest pain palpitations or shortness of breath at resting but gets worn out, out of breath with activity lately. No fever or chills reported. Patient reports he does not have appetite and has been losing weight and unable to figure out the reason. Patient was seen at [facility] few weeks ago and labs were done but does not know the results. 11/14/22 20:50 is given fluid bolus, on reevaluation blood pressure improved. Patient work-up showed white count of 14, normal lactate and acute renal failure with a baseline creatinine of 1.4 last year and today 2.7 with elevated BUN and 60s. I have obtained chest x-ray which is negative for any acute cardiopulmonary findings reviewed by me, has lipase of 306 and patient is complaining of some back pain I have obtained CT abdomen pelvis which is negative for any acute abdominal pelvic findings. He does have UTI and elevated Pro-Silverio, given a dose of Rocephin. Discussed with Dr. Ghosh, reviewed history, work-up and patient is being admitted. I have discussed the results of work-up and plan of admission with patient and family who understand and agree with it. 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 Ghosh 2009) Reviewed:: Test results Agreed on:: Treatment plan, place in obs Will see patient: in hospital - Diagnostic Testing Diagnostic test were ordered, analyzed, and reviewed by me: Yes Radiological Interpretation: Interpreted by me, Reviewed by me, Teleradiologist Report - Risk of complications The pt has a high risk of morbidity or mortality based on: Decision regarding hospitilization or escalation of hosp level of care - Departure Departure Disposition: Home Clinical Impression: Acute renal failure, Acute UTI, Sepsis, Elevated lipase, Hypotension Condition: Stable Critical Care Time: No
[2022-11-14 16:35] LABS: ALBUMIN 3.7 g/dL (3.5-5.0); ALKALINE PHOSPHATASE 74 U/L (38-126); ANION GAP 18.2 MEQ/L (5-15); BLOOD UREA NITROGEN 63 mg/dL (9-20); CHLORIDE 95 mmol/L (98-107); Carbon Dioxide 27 mmol/L (22-30); Creatinine 1 2.71 mg/dL (0.66-1.25); EST GLOMERULAR FILTRATION RATE 24.5 ML/MIN; Glucose 126 mg/dL (74-106); LIPASE 306 U/L (23-300); MAGNESIUM 2.3 mg/dL (1.6-2.3); NT PRO BNPII 79.1 pg/mL (<300); Potassium 3.9 mmol/L (3.5-5.1); SGOT/AST 34 U/L (17-59); SGPT/ALT 35 U/L (0-50); SODIUM 137 mmol/L (137-145); TROPONIN < 0.012 ng/mL (0.000-0.034); Total Protein 8.1 g/dL (6.3-8.2)
[2022-11-14] MEDS ORDERED: Sodium Chloride 0.9% 500 ML 500 ML IV ONE (17:14)
--- NOTE | 2022-11-14 18:58 | XRAY ---
Indication: General weakness. Comparison: None Portable apical lordotic chest demonstrates large hiatal hernia with intrathoracic stomach. Remaining heart and lungs unremarkable. Bony thorax intact with osteopenia.
[2022-11-14 20:27] LABS: Appearance Cloudy (Clear); Bacteria Moderate /HPF (None Seen); Bilirubin Negative (Negative); Blood Trace (Negative); Epithelial Cells None Seen /HPF (None Seen); Glucose, Urine >=1000 mg/dL (Negative); Ketones Trace (Negative); Leukocyte Esterase Moderate (Negative); Nitrite Positive (Negative); Protein,Urine Dip 30 (Negative); RBC 0-2 /HPF (0-5); Specific Gravity 1.025 (1.005-1.030); WBC >100 /HPF (0-5)
[2022-11-14 20:28] LABS: ADD URINE CULTURE? YES (NO)
--- NOTE | 2022-11-14 20:53 | XRAY ---
CLINICAL HISTORY:gen weakness/ blurry vision COMPARISON:11/02/2021. TECHNIQUE:CT scan of the brain without contrast administration. Images were acquired in axial cuts with coronal and sagittal reformation. FINDINGS: Age matched central and cortical involutional brain changes as evident by prominent cortical sulci, widened basal cisterns and mild ventricular dilatation. Deep white matter chronic ischemia as evident by exaggerated white matter hypodensity. 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 No CT evidence of acute infarction. No shift of the midline structures. No evidence of intra or extra axial recent hematoma. Normal appearance of the posterior fossa structures including the brainstem and cerebellum. Bone window settings showed no evidence of fractures or destructive lesions. IMPRESSION: No evidence of acute infarction or recent hemorrhage. Age matched involutional brain changes and deep white matter chronic low-grade ischemia. No significant changes since the last study. Electronically Signed by: Bonnie Bullock MD. (11/14/2022 15:48:53 TOOL AND FIXTURE REPAIRER)
[2022-11-14] MEDS ORDERED: ROCEPHIN 1 Gm-D5w 50 ml Bag** 1 G/50 ML IVPB IV STA (21:10)
[2022-11-14] MEDS ORDERED: ROCEPHIN 1 Gm-D5w 50 ml Bag** 1 G/50 ML IVPB IV ONE (21:36)
[2022-11-14] MEDS ORDERED: HUMALOG SQ PRN (22:46)
[2022-11-14] MEDS ORDERED: DUONEB 0.5-3 MG/3 ml Neb IH PRN (22:46)
--- NOTE | 2022-11-15 00:23 | PCM.HP ---
History of Present Illness - Chief Complaint Chief Complaint: Acute renal failure, sepsis, acute UTI, hypotension, genera lized weakness Date: 11/15/22 History of Present Illness: This is a 77-year-old male with history of hyperlipidemia, hypertension, diabetes who presented to the ED this afternoon for weakness, fatigue for 3 weeks. Initial vital signs he was afebrile, heart rate 78, blood pressure 86/62 sat 96%. Labs significant for WBC 13, hemoglobin 9.9, creatinine 2.7 (no prior), lactate 0.9, lipase 306, procalcitonin 0.188, UA positive for ketones positive for nitrates positive for leukocyte esterase and greater than 100 WBCs. Chest x-ray showed no acute abnormalities. CT head showed no acute abnormalities. CT abdomen pelvis was negative for any acute pathology. In the ED he received Rocephin and IV fluids. - Review of Systems Constitutional: Fatigue, Lethargy Eyes: No Symptoms Ears, Nose, & Throat: No Symptoms Respiratory: No Symptoms Cardiac: No Symptoms Abdominal/Gastrointestinal: No Symptoms, Diarrhea Genitourinary Symptoms: Dysuria Musculoskeletal: No Symptoms Skin: No Symptoms Medications & Allergies Home Medications: Home Medication List Propranolol HCl 30 mg PO BID 03/13/19 [History Confirmed 11/14/22] Empagliflozin [Jardiance] 25 mg PO DAILY 11/02/21 [History Confirmed 11/14/22] Lisinopril/Hydrochlorothiazide [Lisinopril-Hctz 20-25 mg Tab] 1 tab PO DAILY 11/02/21 [History Confirmed 11/14/22] Rosuvastatin Calcium 20 mg PO DAILY 11/02/21 [History Confirmed 11/14/22] Allergies/Adverse Reactions: Allergies Allergy/AdvReac Type Severity Reaction Status Date / Time No Known Drug Allergies Allergy Verified 11/14/22 15:38 - Past Medical History Past Medical History: Yes Neurological History: No Pertinent History ENT History: No Pertinent History Cardiac History: High Cholesterol, Hypertension Respiratory History: No Pertinent History Endocrine Medical History: Other Musculoskelatal History: No Pertinent History GI Medical History: No Pertinent History, Ulcer History: No Pertinent History Pyscho-Social History: No Pertinent History Male Reproductive Disorders: No Pertinent History Comment: prediabetic - Past Surgical History Past Surgical History: Yes Neuro Surgical History: No Pertinent History Cardiac History: No Pertinent History Respiratory Surgery: No Pertinent History GI Surgical History: Other Genitourinary Surgical Hx: No Pertinent History Musculskeletal Surgical Hx: No Pertinent History Male Surgical History: No Pertinent History Other Surgical History: colonoscopy. egd - Social History Smoking Status: Former smoker Exposure to second hand smoke: Yes Alcohol: None Drug Use: none - Physical Exam Vital Signs: Vital Signs - 24 hr Temp Pulse Resp BP Pulse Ox 11/15/22 00:00 98.8 F 85 16 130/74 94 L 11/14/22 23:28 85 16 94 L 11/14/22 23:00 98.8 F 82 16 130/74 96 11/14/22 21:39 96 11/14/22 20:00 81 20 120/77 96 11/14/22 19:00 75 20 126/82 93 L 11/14/22 18:01 76 18 102/69 95 11/14/22 17:18 72 18 89/66 90 L 11/14/22 15:42 97.0 F 78 22 86/62 96 Results - Labs Lab/Micro Results: Lab Results-Last 24 Hours 11/14/22 11/14/22 11/14/22 Range/Units 15:51 15:51 15:55 WBC 13.4 H (4.0-10.5) x10^3/uL RBC 3.47 L (4.1-5.6) x10^6/uL Hgb 9.9 L (12.5-18.0) g/dL Hct 31.8 L (42-50) % MCV 91.6 (78-100) fL MCH 28.5 (26-32) pg MCHC 31.1 L (32-36) g/dL RDW 13.5 (11.5-14.0) % Plt Count 332 (150-450) x10^3/uL MPV 9.6 (7.5-11.0) fL Gran % 73.1 H (36.0-66.0) % Immature Gran % (Auto) 0.6 H (0.00-0.4) % Nucleat RBC Rel Count 0.0 (0.00-0.1) % Eos # (Auto) 0.20 (0-0.5) x10^3/uL Immature Gran # (Auto) 0.08 H (0.00-0.03) x10^3u/L Absolute Lymphs (auto) 1.99 (1.0-4.6) x10^3/uL Absolute Monos (auto) 1.31 H (0.0-1.3) x10^3/uL Absolute Nucleated RBC 0.00 (0.00-0.01) x10^3u/L Lymphocytes % 14.9 L (24.0-44.0) % Monocytes % 9.8 (0.0-12.0) % Eosinophils % 1.5 (0.00-5.0) % Basophils % 0.1 (0.0-0.4) % Absolute Granulocytes 9.75 H (1.4-6.9) x10^3/uL Basophils # 0.02 (0-0.4) x10^3/uL Sodium 137 (137-145) mmol/L Potassium 3.9 (3.5-5.1) mmol/L Chloride 95 L (98-107) mmol/L Carbon Dioxide 27 (22-30) mmol/L Anion Gap 18.2 H (5-15) MEQ/L BUN 63 H (9-20) mg/dL Creatinine 2.71 H (0.66-1.25) mg/dL Estimated GFR 24.5 ML/MIN Glucose 126 H (74-106) mg/dL Lactic Acid (0.4-2.0) Calcium 9.0 (8.4-10.2) mg/dL Magnesium 2.3 (1.6-2.3) mg/dL Total Bilirubin 0.50 (0.2-1.3) mg/dL AST 34 (17-59) U/L ALT 35 (0-50) U/L Alkaline Phosphatase 74 (38-126) U/L Troponin I < 0.012 (0.000-0.034) ng/mL NT-Pro-B Natriuret Pep 79.1 (<300) pg/mL Serum Total Protein 8.1 (6.3-8.2) g/dL Albumin 3.7 (3.5-5.0) g/dL Lipase 306 H (23-300) U/L Procalcitonin 0.188 H (0.030-0.080) ng/mL Urine Color (Yellow) Urine Appearance (Clear) Urine pH (4.6-8.0) Ur Specific [place] (1.005-1.030) Urine Protein (Negative) Urine Glucose (UA) (Negative) mg/dL Urine Ketones (Negative) Urine Blood (Negative) Urine Nitrite (Negative) Urine Bilirubin (Negative) Urine Urobilinogen (0.2) mg/dL Ur Leukocyte Esterase (Negative) U Hyaline Cast (Auto) (0-2) /LPF Urine Microscopic RBC (0-5) /HPF Urine Microscopic WBC (0-5) /HPF Ur Epithelial Cells (None Seen) /HPF Urine Bacteria (None Seen) /HPF Urine Culture Reflexed (NO) 11/14/22 11/14/22 11/14/22 Range/Units 16:15 18:21 19:09 WBC (4.0-10.5) x10^3/uL RBC (4.1-5.6) x10^6/uL Hgb (12.5-18.0) g/dL Hct (42-50) % MCV (78-100) fL MCH (26-32) pg MCHC (32-36) g/dL RDW (11.5-14.0) % Plt Count (150-450) x10^3/uL MPV (7.5-11.0) fL Gran % (36.0-66.0) % Immature Gran % (Auto) (0.00-0.4) % Nucleat RBC Rel Count (0.00-0.1) % Eos # (Auto) (0-0.5) x10^3/uL Immature Gran # (Auto) (0.00-0.03) x10^3u/L Absolute Lymphs (auto) (1.0-4.6) x10^3/uL Absolute Monos (auto) (0.0-1.3) x10^3/uL Absolute Nucleated RBC (0.00-0.01) x10^3u/L Lymphocytes % (24.0-44.0) % Monocytes % (0.0-12.0) % Eosinophils % (0.00-5.0) % Basophils % (0.0-0.4) % Absolute Granulocytes (1.4-6.9) x10^3/uL Basophils # (0-0.4) x10^3/uL Sodium (137-145) mmol/L Potassium (3.5-5.1) mmol/L Chloride (98-107) mmol/L Carbon Dioxide (22-30) mmol/L Anion Gap (5-15) MEQ/L BUN (9-20) mg/dL Creatinine (0.66-1.25) mg/dL Estimated GFR ML/MIN Glucose (74-106) mg/dL Lactic Acid 2.0 0.9 (0.4-2.0) Calcium (8.4-10.2) mg/dL Magnesium (1.6-2.3) mg/dL Total Bilirubin (0.2-1.3) mg/dL AST (17-59) U/L ALT (0-50) U/L Alkaline Phosphatase (38-126) U/L Troponin I (0.000-0.034) ng/mL NT-Pro-B Natriuret Pep (<300) pg/mL Serum Total Protein (6.3-8.2) g/dL Albumin (3.5-5.0) g/dL Lipase (23-300) U/L Procalcitonin (0.030-0.080) ng/mL Urine Color Yellow (Yellow) Urine Appearance Cloudy A (Clear) Urine pH 5.0 (4.6-8.0) Ur Specific [place] 1.025 (1.005-1.030) Urine Protein 30 (Negative) Urine Glucose (UA) >=1000 A (Negative) mg/dL Urine Ketones Trace A (Negative) Urine Blood Trace (Negative) Urine Nitrite Positive A (Negative) Urine Bilirubin Negative (Negative) Urine Urobilinogen 1.0 A (0.2) mg/dL Ur Leukocyte Esterase Moderate A (Negative) U Hyaline Cast (Auto) 11-20 (0-2) /LPF Urine Microscopic RBC 0-2 (0-5) /HPF Urine Microscopic WBC >100 A (0-5) /HPF Ur Epithelial Cells None Seen (None Seen) /HPF Urine Bacteria Moderate A (None Seen) /HPF Urine Culture Reflexed YES (NO) 11/14/22 Range/Units 20:00 WBC (4.0-10.5) x10^3/uL RBC (4.1-5.6) x10^6/uL Hgb (12.5-18.0) g/dL Hct (42-50) % MCV (78-100) fL MCH (26-32) pg MCHC (32-36) g/dL RDW (11.5-14.0) % Plt Count (150-450) x10^3/uL MPV (7.5-11.0) fL Gran % (36.0-66.0) % Immature Gran % (Auto) (0.00-0.4) % Nucleat RBC Rel Count (0.00-0.1) % Eos # (Auto) (0-0.5) x10^3/uL Immature Gran # (Auto) (0.00-0.03) x10^3u/L Absolute Lymphs (auto) (1.0-4.6) x10^3/uL Absolute Monos (auto) (0.0-1.3) x10^3/uL Absolute Nucleated RBC (0.00-0.01) x10^3u/L Lymphocytes % (24.0-44.0) % Monocytes % (0.0-12.0) % Eosinophils % (0.00-5.0) % Basophils % (0.0-0.4) % Absolute Granulocytes (1.4-6.9) x10^3/uL Basophils # (0-0.4) x10^3/uL Sodium (137-145) mmol/L Potassium (3.5-5.1) mmol/L Chloride (98-107) mmol/L Carbon Dioxide (22-30) mmol/L Anion Gap (5-15) MEQ/L BUN (9-20) mg/dL Creatinine (0.66-1.25) mg/dL Estimated GFR ML/MIN Glucose (74-106) mg/dL Lactic Acid (0.4-2.0) Calcium (8.4-10.2) mg/dL Magnesium (1.6-2.3) mg/dL Total Bilirubin (0.2-1.3) mg/dL AST (17-59) U/L ALT (0-50) U/L Alkaline Phosphatase (38-126) U/L Troponin I < 0.012 (0.000-0.034) ng/mL NT-Pro-B Natriuret Pep (<300) pg/mL Serum Total Protein (6.3-8.2) g/dL Albumin (3.5-5.0) g/dL Lipase (23-300) U/L Procalcitonin (0.030-0.080) ng/mL Urine Color (Yellow) Urine Appearance (Clear) Urine pH (4.6-8.0) Ur Specific [place] (1.005-1.030) Urine Protein (Negative) Urine Glucose (UA) (Negative) mg/dL Urine Ketones (Negative) Urine Blood (Negative) Urine Nitrite (Negative) Urine Bilirubin (Negative) Urine Urobilinogen (0.2) mg/dL Ur Leukocyte Esterase (Negative) U Hyaline Cast (Auto) (0-2) /LPF Urine Microscopic RBC (0-5) /HPF Urine Microscopic WBC (0-5) /HPF Ur Epithelial Cells (None Seen) /HPF Urine Bacteria (None Seen) /HPF Urine Culture Reflexed (NO) - Radiology Impressions Radiology Exams & Impressions: Radiology Procedures Category Date Time Status ABDOMEN AND PELVIS W/0 CONTRAS [CT] Stat Exams 11/14/22 17:57 Taken CHEST 1 VIEW (PORTABLE) Stat Exams 11/14/22 15:55 Completed HEAD WITHOUT CONTRAST [CT] Stat Exams 11/14/22 15:56 Completed Assessment/Plan (1) Acute UTI Current Visit: Yes Status: Acute Code(s): N39.0 - URINARY TRACT INFECTION, SITE NOT SPECIFIED (2) Acute renal failure Current Visit: Yes Status: Acute (3) Hypotension Current Visit: Yes Status: Acute Assessment & Plan: PHYSICAL EXAM Gen: Alert and oriented, NAD Eyes: PERRL ENT: MMM CV: S1S2 Pulm:CTAB no w/c/r Abd: Soft/nt/nd Extrem: No c/c/e Skin: Dry and intact Neuro: No focal deficits ASSESSMENT #Urinary tract infection #Possible acute kidney injury, no baseline #Fatigue #History of diabetes #History of hypertension PLAN -Rocephin -IV fluids -Follow renal panel and urine output -Sliding scale insulin -Hold diuretic and ZION inhibitor Prophylaxis: Heparin Entire encounter performed via telemedicine Code(s): I95.9 - HYPOTENSION, UNSPECIFIED Telemedicine Encounter - Telemedicine Encounter Telemedicine Encounter: The entirety of this encounter was performed via Telemedicine"
[2022-11-15] MEDS ORDERED: APRESOLINE 20 MG/ML INJ IV PRN (00:24)
[2022-11-15] MEDS: Sodium Chloride 0.9% 1000 ML 1,000 ML IV SCH ×3 (00:42→21:44)
[2022-11-15] MEDS: Pepcid 20 MG VIAL IV SCH ×3 (00:42→21:44)
[2022-11-15] MEDS: TYLENOL 325 MG PO PRN ×2 (00:42→23:39)
[2022-11-15 04:59] LABS: Absolute Neutrophil Ct (ANC) 8.42 x10^3/uL (1.4-6.9); BASOPHIL % 0.2 % (0.0-0.4); Basophil (Absolute #) 0.02 x10^3/uL (0-0.4); Eosinophil % 2.6 % (0.00-5.0); Hematocrit 27.6 % (42-50); Hemoglobin 8.5 g/dL (12.5-18.0); IMMATURE GRAN # 0.05 x10^3u/L (0.00-0.03); IMMATURE GRAN % 0.4 % (0.00-0.4); Lymphocyte (Absolute #) 1.91 x10^3/uL (1.0-4.6); Lymphocytes % 16.3 % (24.0-44.0); Mean Cell Volume 91.7 fL (78-100); Mean Corpuscular Hemoglobin 28.2 pg (26-32); Mean Corpuscular Hgb Concent. 30.8 g/dL (32-36); Mean Platelet Volume 9.8 fL (7.5-11.0); Monocyte (Absolute #) 1.02 x10^3/uL (0.0-1.3); Monocytes % 8.7 % (0.0-12.0); Neutrophil % 71.8 % (36.0-66.0); Platelet Count 272 x10^3/uL (150-450); Red Blood Count 3.01 x10^6/uL (4.1-5.6); Red Cell Distribution Width 13.6 % (11.5-14.0); White Blood Count 11.7 x10^3/uL (4.0-10.5)
[2022-11-15 05:27] LABS: ALBUMIN 3.2 g/dL (3.5-5.0); ANION GAP 11.8 MEQ/L (5-15); BILIRUBIN,TOTAL 0.4 mg/dL (0.2-1.3); Calcium 8.2 mg/dL (8.4-10.2); Creatinine 1 1.71 mg/dL (0.66-1.25); EST GLOMERULAR FILTRATION RATE 41.7 ML/MIN; Total Protein 7.2 g/dL (6.3-8.2)
--- NOTE | 2022-11-15 08:51 | XRAY ---
Indication: Abdomen/back pain. Multiple contiguous axial images obtained through the abdomen and pelvis without contrast. Comparison: None Lung bases demonstrate very large hiatal hernia with intrathoracic stomach, loop of transverse colon, and omental fat occupying both lung bases. Subsequent bilateral compressive atelectasis, right greater than left. Heart not enlarged with coronary calcifications. Aorta demonstrates moderate scattered arteriosclerotic disease. Infrarenal AAA measuring at least 7.5 x 8.8 cm in greatest axial dimension and 9 cm in length. AAA demonstrates eccentric density that may represent mural thrombi. Dissection not completely excluded on this noncontrast exam. Noncontrasted stomach and bowel loops appear nonobstructed. Appendix not visualized. Scattered sigmoid diverticulosis without diverticulitis. A few bilateral renal cysts, largest right upper pole measuring 1.5 cm. Nonobstructing 4 mm left renal calculus. No free fluid/air. Remaining liver, gallbladder, pancreas, spleen, adrenal glands, kidneys, ureters, and bladder are unremarkable for noncontrast exam. Osseous structures intact with osteopenia and mild/moderate degenerative changes throughout the thoracolumbar spine. 7 mm S2 sclerotic lesion, probable bone island. Impression: 1. Arteriosclerotic disease with AAA as detailed. Lack of IV contrast precludes further characterization. 2. Very large hiatal hernia with intrathoracic stomach, colon, and omental fat. 3. Incidental sigmoid diverticulosis, bilateral renal cysts, nonobstructing left renal micro-calculus, and chronic bony findings.
--- NOTE | 2022-11-15 10:59 | TM.IN ---
Tele-Medicine Incident Note - Incident Note Tel-Medicine Incident Note: 11/15/22 1057 Patient admitted by overnight physician with sepsis secondary to acute cystitis. Improving now, with normal blood pressure, lactate resolved, and improving acute kidney injury. Creatinine decreased from 2.7 to 1.7. He longer has any dysuria. He was able to eat breakfast today. On CT abdomen, patient had incidental finding of an infrarenal abdominal aortic aneurysm, 7.5 x 8.8 cm. Patient denies any history of known AAA, and denies new back pain, weakness, or numbness. He has chronic low back pain that is unchanged. We discussed the need for evaluation by a vascular surgeon at the [facility] for management with possible open or endovascular repair. We discussed the risk factors for dissection and rupture, and while patient does not need immediate transfer, he does need a urgent evaluation with a vascular surgeon as an outpatient. He understands, and will follow-up through his [facility] primary care doctor, which is currently changing. Encounter took place via telemedicine. Telemedicine Encounter - Telemedicine Encounter Telemedicine Encounter: The entirety of this encounter was performed via Telemedicine"
[2022-11-15] MEDS ORDERED: ROCEPHIN 1 Gm-D5w 50 ml Bag** 1 G/50 ML IVPB IV SCH (22:00)
[2022-11-16 04:54] LABS: Hematocrit 27.6 % (42-50); Hemoglobin 8.4 g/dL (12.5-18.0); Mean Cell Volume 91.4 fL (78-100); Mean Corpuscular Hemoglobin 27.8 pg (26-32); Mean Corpuscular Hgb Concent. 30.4 g/dL (32-36); Mean Platelet Volume 9.9 fL (7.5-11.0); Platelet Count 260 x10^3/uL (150-450); Red Blood Count 3.02 x10^6/uL (4.1-5.6); Red Cell Distribution Width 13.5 % (11.5-14.0); White Blood Count 10.2 x10^3/uL (4.0-10.5)
[2022-11-16 05:01] LABS: ANION GAP 13.9 MEQ/L (5-15); BLOOD UREA NITROGEN 22 mg/dL (9-20); CHLORIDE 104 mmol/L (98-107); Calcium 8.4 mg/dL (8.4-10.2); Carbon Dioxide 23 mmol/L (22-30); Creatinine 1 1.16 mg/dL (0.66-1.25); EST GLOMERULAR FILTRATION RATE > 60.0 ML/MIN; Glucose 99 mg/dL (74-106); Potassium 3.7 mmol/L (3.5-5.1); SODIUM 137 mmol/L (137-145)
[2022-11-16] MEDS: Pepcid 20 MG VIAL IV SCH (09:19)
--- NOTE | 2022-11-16 11:11 | PCM.DS ---
Discharge Summary Date of Admission: 11/14/22 22:41 Date of Discharge: 11/16/2022 Admitting Physician: TERESE HEADLEY MD Primary Care Provider: [facility] Allergies Allergies No Known Drug Allergies Allergy (Verified 11/14/22 15:38) Hospital Summary - Hospital Course Hospital Course: 77-year-old man with a history of diabetes and hypertension who presented with fatigue and weakness for 3 weeks. He was found to be hypotensive and had sepsis secondary to acute cystitis, associated with acute kidney injury. He was admitted to the hospital and given fluid resuscitation, with improvement in his blood pressure. His creatinine improved from 2.7 on arrival to 1.1 prior to discharge. Unknown baseline creatinine, but it was 1.4 and labs done in 2021. He responded well to IV Rocephin, and urine culture was positive for gram-negative rods, but the specific identification was still pending at time of discharge. However, patient was ambulating well, eating well, and feeling "tremendously better", and so was arranged to discharge to home. Of note, he had an episode of delirium 1 night at the hospital, confused as to where he was, and trying to call his daughter. The next day, he was feeling much better, and was oriented and able to discuss his medical care. He will be discharged to complete a 1 week course of antibiotics with Keflex. Incidentally, patient was found on CT abdomen pelvis to have an infrarenal abdominal aortic aneurysm, 7.5 x 8.8 cm in diameter. Patient has no known history of AAA, and denies acute back pain, weakness or numbness. He is a former heavy smoker, although quit 40 years ago. We discussed the need for evaluation by a vascular surgeon for management with possible open versus endovascular repair. Patient follows with the [facility] in [place], and we will arrange follow-up there, including consultation with vascular surgery. - Vitals & Intake/Output Vital Signs: Vital Signs Temperature 97.4 F 11/16/22 08:00 Pulse Rate 89 11/16/22 08:00 Respiratory Rate 16 11/16/22 08:00 Blood Pressure 127/71 11/16/22 08:00 O2 Sat by Pulse Oximetry 91 L 11/16/22 08:00 Intake & Output: Intake & Output 11/13/22 11/14/22 11/15/22 11/16/22 11:59 11:59 11:59 11:59 Intake Total 2193 Output Total 1250 1900 Balance -1250 293 Weight 77.8 kg 76.9 kg - Lab Result Diagrams: 11/16/22 04:33 11/16/22 04:33 Lab Results-Last 24 Hrs: Lab Results-Last 24 Hours 11/15/22 11/15/22 11/15/22 Range/Units 11:49 16:07 18:15 WBC (4.0-10.5) x10^3/uL RBC (4.1-5.6) x10^6/uL Hgb (12.5-18.0) g/dL Hct (42-50) % MCV (78-100) fL MCH (26-32) pg MCHC (32-36) g/dL RDW (11.5-14.0) % Plt Count (150-450) x10^3/uL MPV (7.5-11.0) fL Sodium (137-145) mmol/L Potassium (3.5-5.1) mmol/L Chloride (98-107) mmol/L Carbon Dioxide (22-30) mmol/L Anion Gap (5-15) MEQ/L BUN (9-20) mg/dL Creatinine (0.66-1.25) mg/dL Estimated GFR ML/MIN Glucose (74-106) mg/dL POC Glucometer 116 H 94 (74 to 106) mg/dL Hemoglobin A1c 6.35 H (4.5-6.0) % Calcium (8.4-10.2) mg/dL 11/15/22 11/16/22 11/16/22 Range/Units 20:53 04:33 04:33 WBC 10.2 (4.0-10.5) x10^3/uL RBC 3.02 L (4.1-5.6) x10^6/uL Hgb 8.4 L (12.5-18.0) g/dL Hct 27.6 L (42-50) % MCV 91.4 (78-100) fL MCH 27.8 (26-32) pg MCHC 30.4 L (32-36) g/dL RDW 13.5 (11.5-14.0) % Plt Count 260 (150-450) x10^3/uL MPV 9.9 (7.5-11.0) fL Sodium 137 (137-145) mmol/L Potassium 3.7 (3.5-5.1) mmol/L Chloride 104 (98-107) mmol/L Carbon Dioxide 23 (22-30) mmol/L Anion Gap 13.9 (5-15) MEQ/L BUN 22 H (9-20) mg/dL Creatinine 1.16 (0.66-1.25) mg/dL Estimated GFR > 60.0 ML/MIN Glucose 99 (74-106) mg/dL POC Glucometer 101 (74 to 106) mg/dL Hemoglobin A1c (4.5-6.0) % Calcium 8.4 (8.4-10.2) mg/dL 11/16/22 Range/Units 06:55 WBC (4.0-10.5) x10^3/uL RBC (4.1-5.6) x10^6/uL Hgb (12.5-18.0) g/dL Hct (42-50) % MCV (78-100) fL MCH (26-32) pg MCHC (32-36) g/dL RDW (11.5-14.0) % Plt Count (150-450) x10^3/uL MPV (7.5-11.0) fL Sodium (137-145) mmol/L Potassium (3.5-5.1) mmol/L Chloride (98-107) mmol/L Carbon Dioxide (22-30) mmol/L Anion Gap (5-15) MEQ/L BUN (9-20) mg/dL Creatinine (0.66-1.25) mg/dL Estimated GFR ML/MIN Glucose (74-106) mg/dL POC Glucometer 94 (74 to 106) mg/dL Hemoglobin A1c (4.5-6.0) % Calcium (8.4-10.2) mg/dL Micro Results-Entire Visit: Microbiology 11/14/22 19:09 Urine Culture - Preliminary Clean Catch Midstream GRAM NEGATIVE ID AND SENSITIVITY PENDING 11/14/22 16:50 Blood Culture - Preliminary Blood 11/14/22 16:45 Blood Culture - Preliminary Blood Accuchecks Date 11/16/22 Date 11/15/22 Date 11/15/22 Time 07:17 Time 16:15 Time 12:02 - Radiology Exams Ordered Rad Exams-Entire Visit: Radiology Procedures Category Date Time Status ABDOMEN AND PELVIS W/0 CONTRAS [CT] Stat Exams 11/14/22 17:57 Completed CHEST 1 VIEW (PORTABLE) Stat Exams 11/14/22 15:55 Completed HEAD WITHOUT CONTRAST [CT] Stat Exams 11/14/22 15:[address] abdomen pelvis infrarenal AAA measuring at least 7.5 x 8.8 cm in greatest axial dimension, and 9 cm in length. AAA demonstrates eccentric density that may represent mural thrombi. Dissection not completely excluded on this noncontrast exam. Very large hiatal hernia with intrathoracic stomach, colon, and omental fat. Incidental sigmoid diverticulosis, bilateral renal cyst, nonobstructing left renal micro calculus, and chronic bony findings. CT head no evidence of acute infarction or recent hemorrhage. Age-matched involutional brain changes and deep white matter chronic low-grade ischemia. Unchanged from prior study. Chest x-ray large hiatal hernia with intrathoracic stomach. Remaining heart and lungs are unremarkable. - Procedures and Test Procedures and Tests throughout Hospitalization: Therapy Orders & Screens 11/14/22 23:28 Respiratory Therapy Assessment DAILY Comment: Diagnosis: Acute renal failure, sepsis, acute UTI, hypotension, generalized weakness Discharge Exam General Appearance: no apparent distress Neurologic Exam: alert, oriented x 3, normal mood/affect Eye Exam: eyes nml inspection Respiratory Exam: normal breath sounds, lungs clear, No respiratory distress Cardiovascular Exam: regular rate/rhythm, No murmur, No edema Gastrointestinal/Abdomen Exam: soft, No tenderness, No distention Final Diagnosis/Problem List - Final Discharge Diagnosis/Problem (1) Acute cystitis Current Visit: Yes Status: Acute Code(s): N30.00 - ACUTE CYSTITIS WITHOUT HEMATURIA (2) AAA (abdominal aortic aneurysm) without rupture Current Visit: Yes Status: Acute Code(s): I71.40 - ABDOMINAL AORTIC ANEU RYSM, WITHOUT RUPTURE, UNSPECIFIED (3) Sepsis Current Visit: Yes Status: Acute (4) Acute renal injury Current Visit: No Status: Acute Code(s): N17.9 - ACUTE KIDNEY FAILURE, UNSPECIFIED Telemedicine Encounter - Telemedicine Encounter Telemedicine Encounter: The entirety of this encounter was performed via Telemedicine" - Discharge Discharge Date: 11/16/22 Disposition: Home, Self-Care Condition: Stable Prescriptions: New Cephalexin Mh 500 mg [Keflex 500 mg] 500 mg PO QID #20 cap Continue Propranolol HCl 30 mg PO BID Rosuvastatin Calcium 20 mg PO DAILY Lisinopril/Hydrochlorothiazide [Lisinopril-Hctz 20-25 mg Tab] 1 tab PO DAILY Empagliflozin [Jardiance] 25 mg PO DAILY Instructions: Abdominal aortic aneurysm Additional Instructions: Complete taking your oral antibiotics for 5 more days until all of the pills are completed. During your stay, we happened to find an enlargement of your aorta, the large blood vessel that runs through your abdomen to your legs. This is called an abdominal aortic aneurysm or AAA. This was seen on a CT scan done of your abdomen. It currently measures 7.5 x 8.8 cm in diameter. When this large, and aneurysm has the chance of rupturing, leading to severe problems. You will need to follow-up with a vascular surgeon at the [facility] to evaluate if you would require surgical repair of the aneurysm to prevent such complication. We are unable to make a referral to a [facility] specialist from our hospital. Please discuss these findings with your new primary care provider at the [facility] clinic, so that you can be referred to the vascular surgeon for evaluation. Follow up with: [facility] [Primary Care Provider] - 1 Week
[2022-11-16 12:29] VITALS: BP 110/58; PULSE 121
[2022-11-19 13:21] VITALS: O2SAT 96
== END 2022-11-16 14:40 | disposition home or self-care (01) ==
LOC: ED 15:21 → MED SURG 22:41 → UNDOADMOB 22:41
PROVIDERS: ADMIT Internal Medicine; ATTEND Family Medicine
DX: N30.00 Acute cystitis without hematuria (principal); I71.40 Abdominal aortic aneurysm, without rupture, unspecified; A41.9 Sepsis, unspecified organism; N17.9 Acute kidney failure, unspecified; I10 Essential (primary) hypertension; I95.9 Hypotension, unspecified; E11.9 Type 2 diabetes mellitus without complications; E78.5 Hyperlipidemia, unspecified; Z79.899 Other long term (current) drug therapy; Z20.828 Contact with and (suspected) exposure to other viral communicable diseases
CPT/HCPCS: 36000; 36415; 70450; 71045; 74176; 80048; 80053; 81001; 82947; 83036; 83605; 83690; 83735; 83880; 84145; 84484; 85025; 85027; 87040; 87077; 87086; 87186; 93005; 93268; 96360; 99284; G0378; Q3014; J0696; A9270-GY